=== PATIENT | female | born 1935 | race Caucasian/White ===

== ENCOUNTER → 2017-03-10 10:42 | Outpatient (CLI) | payer MEDICARE, OTHER ==
[2014-08-11 08:16] VITALS: BMI 23.6
[~2017-03-10 10:42] MED LIST: ASCORBIC ACID500 MG PO; ASPIRIN325 MG PO; CALCIUM 500 +1 EAC3 PO; FISH OIL 1,0001 CA1 PO; GLUCOSAMINE & C1 CAP PO; MULTIPLE VITAMI1 TA1 PO; SYNTHROID50 MCG PO; TOPROL XL25 MG PO; VITAMIN B COMPL1 TAB PO; ZOCOR40 MG PO
[2017-03-10 11:15] LABS: HEMATOCRIT 37.6 % (36.0-48.0); HEMOGLOBIN 12.6 g/dL (12-16); LYMPHOCYTES 27.6 % (15-50); MCH 29.4 pg (26.0-34.0); MCHC 33.5 g/dL (31.0-37.0); MCV 87.6 fL (80.0-100.0); MEAN PLATELET VOLUME 8.8 fL (7.4-10.4); NEUTROPHILS 64.7 % (40-80); PLATELET COUNT 165 10x3/uL (130-400); RBC 4.29 10x6/uL (4.00-5.40); RDW 13.4 % (11.5-14.5); WBC 4.9 10x3/uL (4.8-10.8)
[2017-03-10 11:38] LABS: ALBUMIN 3.4 g/dL (3.4-5.0); ANION GAP 11.5 mmol/L (8-16); BILIRUBIN - TOTAL 0.47 mg/dL (0.2-1.3); CALCIUM 9.5 mg/dL (8.5-10.1); CARBON DIOXIDE 29.5 mmol/L (21.0-32.0); CHOL - HDL RATIO 1.8 ratio (2.3-4.1); CREATININE - SERUM 0.9 mg/dL (0.6-1.3); LDL-HDL RATIO 0.6 ratio (1.5-3.5); PROTEIN - SERUM 7.2 g/dL (6.4-8.2); THYROID STIMULATING HORMONE 1.25 uIU/mL (0.36-3.74)
[2017-03-13 15:19] LABS: EHRLICHIA CHAFF IGG Negative (Neg:<1:64); EHRLICHIA CHAFF IGM Negative (Neg:<1:20); HGE IGG TITER Negative (Neg:<1:64); HGE IGM TITER Negative (Neg:<1:20)
[2017-03-16 08:21] LABS: F. TULARENSIS - IGG Negative (()); F. TULARENSIS - IGM Negative (())
== END | disposition home or self-care (01) ==
LOC: D.LAB 10:42
PROVIDERS: Family Medicine
DX: Z00.00 Encounter for general adult medical examination without abnormal findings (principal); E03.9 Hypothyroidism, unspecified; E78.5 Hyperlipidemia, unspecified; R53.81 Other malaise

== ENCOUNTER 2018-08-14 09:00 | Outpatient (CLI) | payer MEDICARE, OTHER ==
[2014-08-11 08:16] VITALS: BMI 23.6
== END 2018-08-14 09:30 | disposition home or self-care (01) ==
LOC: D.CT 09:00
PROVIDERS: ATTEND Family Medicine
DX: R10.2 Pelvic and perineal pain (principal)